=== PATIENT | male | born 1965 | race Caucasian/White ===

== ENCOUNTER 2020-01-03 20:53 | Emergency (ER) | payer MEDICAID, SELFPAY ==
[2020-01-03 20:54] VITALS: BP 123/76; PULSE 96; RESP 18; TEMP 36.4; O2SAT 100; BMI 27.8
--- NOTE | 2020-01-03 21:22 | ED.RN ---
pt here for med refill for Keppra. pt takes 500 mg BID. pt has had no seizure activity but will run out of meds before filling prescription.
--- NOTE | 2020-01-03 22:13 | ED.DEP ---
ED Disposition - Plan for ED Patient: Instructions: Med Refill Prescriptions: Levetiracetam [Keppra] 500 mg PO BID #14 tablet Referrals: [facility],Out of [Primary Care Provider] -
--- NOTE | 2020-01-03 22:18 | ED.VISSUMM ---
- ER Visit Summary Date of Service: 01/03/20 Chief Complaint: Med refill History of Present Illness: The patient is a 54 M presenting needing medication refill. Patient is from out of [facility]. He picked up his prescriptions before coming to [facility]. He did not realize he did not have his Keppra with him. He typically takes Keppra 500 mg twice daily. He has had no seizures. He has a history of glioblastoma and is on Keppra for seizure precautions. He denies fever, headache. He is asymptomatic. Physical Examination: Vitals are stable. Patient is afebrile. Alert no acute distress. HEENT exam is unremarkable. Neck is supple. Lungs are clear and equal bilaterally. Heart is regular rate and rhythm. Extremities are unremarkable. Skin is warm and dry. No focal neurologic deficit. Remainder of exam is unremarkable. Emergency Department Course and Treatment: Patient was given his nighttime dose of Keppra and a prescription. Advised to follow-up with his primary care physician. Advised return to ED if worsening complaints. Disposition: Discharge home Impression: Medication refill This note was generated with [employer] dictation software. It may contain incorrect words, spelling, and punctuation that were not noted in review of the chart prior to signing ED Disposition - Plan for ED Patient: Instructions: Med Refill Prescriptions: Levetiracetam [Keppra] 500 mg PO BID #14 tab Prescription Printed Referrals: [facility],Out of [Primary Care Provider] -
[2020-01-03] MEDS: levETIRAcetam 500 MG Tablet PO (22:32)
== END 2020-01-03 22:38 | disposition home or self-care (01) ==
LOC: ED 22:31
PROVIDERS: Emergency Provider Emergency Medicine
DX: Z76.0 Encounter for issue of repeat prescription (principal)
CPT/HCPCS: 99283